=== PATIENT | female | born 1955 | race Two or more races ===

== ENCOUNTER → 2017-05-12 | Outpatient (CLI) | payer OTHER ==
[~2017-05-12] MED LIST: ALLO100T64 PO; AMLO10TA4 PO; AMLO5TAB2 PO; ASPI-496 PO; ATOR40TA PO; AZEL137S4 NAS; CALC1TAB4 PO; CHOL100018 PO; CLON0.1T PO; CLOP75TA22 PO; ENAL10TA PO; ESTR0.5G PO; FLUT16SP2 NAS; ISOS30TA8 PO; LANS30CA16 PO; METO-99 PO; METO50TA82 PO; MOME17SP NAS; MYCO360T PO; NITR0.4T8 SL; ONDA4TAB7 PO; OXYC-302 PO; PRED2.5T PO; PRED5TAB25 PO; TACR1CAP4 PO; TACR5CAP17 PO
== END | disposition home or self-care (01) ==
LOC: CFH 15:38
PROVIDERS: ATTEND Internal Medicine
DX: J98.11 Atelectasis (principal); J98.6 Disorders of diaphragm
CPT/HCPCS: 71250

== ENCOUNTER → 2017-11-10 | Outpatient (CLI) | payer OTHER ==
[~2017-11-10] MED LIST changes: +CHOL100012 PO; -CHOL100018 PO; -CLOP75TA22 PO; +CLOP75TA52 PO; -LANS30CA16 PO; +LANS30CA60 PO; +NITR0.4T28 SL; -NITR0.4T8 SL
== END | disposition home or self-care (01) ==
LOC: CFH 12:47
PROVIDERS: ATTEND Internal Medicine
DX: M48.54XA Collapsed vertebra, not elsewhere classified, thoracic region, initial encounter for fracture (principal); M51.34 Other intervertebral disc degeneration, thoracic region
CPT/HCPCS: 72146

== ENCOUNTER 2017-11-22 08:50 | Emergency (ER) | payer OTHER ==
[~2017-11-22] VITALS: Ht 157.5 cm; Wt 55.6 kg
[2017-11-22 08:51] VITALS: BP 187/88
[2017-11-22 10:34] LABS: RAPID INFLUENZA A Negative (Negative); RAPID INFLUENZA B Negative (Negative)
== END 2017-11-22 11:01 | disposition home or self-care (01) ==
LOC: ED 09:39
DX: J20.9 Acute bronchitis, unspecified (principal); J02.9 Acute pharyngitis, unspecified; I25.10 Atherosclerotic heart disease of native coronary artery without angina pectoris; I25.2 Old myocardial infarction; E11.9 Type 2 diabetes mellitus without complications; E78.5 Hyperlipidemia, unspecified; I10 Essential (primary) hypertension
CPT/HCPCS: 71046; 87081; 87400; 87880; 93005; 99285

== ENCOUNTER → 2018-07-04 | Outpatient (CLI) | payer OTHER | END | disposition home or self-care (01) | LOC: CVU 13:35 | PROVIDERS: ATTEND Internal Medicine Cardiovascular Disease | DX: I65.23 Occlusion and stenosis of bilateral carotid arteries (principal); I08.3 Combined rheumatic disorders of mitral, aortic and tricuspid valves; I25.10 Atherosclerotic heart disease of native coronary artery without angina pectoris; I10 Essential (primary) hypertension; E78.5 Hyperlipidemia, unspecified; J45.909 Unspecified asthma, uncomplicated; Z95.5 Presence of coronary angioplasty implant and graft | CPT/HCPCS: 93306; 93880 ==

== ENCOUNTER 2018-08-07 15:48 | Inpatient (IN) | payer OTHER ==
[~2018-08-07] VITALS: Ht 157.5 cm; Wt 56.8 kg
[~2018-08-07 15:48] MED LIST changes: -AMLO5TAB2 PO; +AMLO5TAB7 PO
[2018-08-07] MEDS ORDERED: ONDANSETRON ODT 4 MG PO ONE (16:30)
[2018-08-07] MEDS ORDERED: SODIUM CHLORIDE FLUSH 10ML SYR IVF ONE (16:30)
[2018-08-07] MEDS ORDERED: MORPHINE SULFATE 4 MG/ML, 1ML IVPush PRN (16:30)
[2018-08-07] MEDS ORDERED: MORPHINE SULFATE 4 MG/ML, 1ML ONE (16:43)
[2018-08-07] MEDS ORDERED: ONDANSETRON ODT 4 MG ONE (16:43)
[2018-08-07 16:45] LABS: BASOPHILS # (AUTO) 0.04 x10^3/uL (0-0.1); BASOPHILS % (AUTO) 1 % (0-1); EOSINOPHILS # (AUTO) 0.04 x10^3/uL (0-0.4); EOSINOPHILS % (AUTO) 1 % (1-7); LYMPHOCYTES # (AUTO) 0.75 x10^3/uL (1-3.4); LYMPHOCYTES % (AUTO) 9 % (22-44); MD NO; MEAN CORPUSCULAR HEMOGLOBIN 28.3 pg (27.0-34.8); MEAN CORPUSCULAR HGB CONC 32.8 g/dL (32.4-35.8); MEAN CORPUSCULAR VOLUME 86.3 fL (80-100); MEAN PLATELET VOLUME 9.2 fL (7.4-10.4); MONOCYTES # (AUTO) 0.48 x10^3/uL (0.2-0.8); MONOCYTES % (AUTO) 6 % (2-9); NEUTROPHILS # (AUTO) 6.87 x10^3/uL (1.8-6.8); NEUTROPHILS % (AUTO) 84 % (42-75); PLATELET COUNT 192 x10^3/uL (130-400); RED BLOOD COUNT 3.48 x10^6/uL (3.82-5.3); RED CELL DISTRIBUTION WIDTH 14.6 % (9.6-15.2)
[2018-08-07 16:57] LABS: ALANINE AMINOTRANSFERASE 16 U/L (12-78); ALBUMIN 3.4 g/dL (3.4-5.0); ANION GAP 12 mmol/L (5-15); CALCIUM 8.3 mg/dL (8.5-10.1); CHLORIDE 110 mmol/L (98-107); CREATININE 2.46 mg/dL (0.55-1.02)
[2018-08-07 17:02] LABS: ALKALINE PHOSPHATASE 69 U/L (45-117); BILIRUBIN,TOTAL 0.3 mg/dL (0.2-1.0); TOTAL PROTEIN 6.5 g/dL (6.4-8.2); TROPONIN I < 0.015 ng/mL (0.000-0.045)
[2018-08-07] MEDS ORDERED: TACR0.5C4 PO (18:13)
[2018-08-07] MEDS ORDERED: AMLO5TAB7 PO (18:13)
[2018-08-07] MEDS ORDERED: STOOL SOFTENER PO (18:13)
[2018-08-07] MEDS ORDERED: CRANBERRY PO (18:13)
[2018-08-07] MEDS ORDERED: ASCO500C2 PO (18:13)
[2018-08-07] MEDS ORDERED: SODIUM CHLORIDE FLUSH 10ML SYR IVF PRN (19:00)
[2018-08-07 19:40] VITALS: BP 174/69
[2018-08-07] MEDS ORDERED: ENALAPRIL 10 MG TABLET PO SCH (21:00)
[2018-08-07] MEDS ORDERED: ONDANSETRON 2MG/ML, 2ML IVPush PRN (21:00)
[2018-08-07] MEDS ORDERED: DOCUSATE 100 MG CAPSULE PO PRN (21:00)
[2018-08-07] MEDS ORDERED: ACETAMINOPHEN 325 MG TABLET PO PRN (21:00)
[2018-08-07] MEDS ORDERED: morphine SULFATE 10 MG/ML, 1ML IVPush PRN (21:00)
[2018-08-07] MEDS ORDERED: ATORVASTATIN 40 MG TABLET PO SCH (21:00)
[2018-08-07] MEDS ORDERED: NITROGLYCERIN 0.4 MG BOTTLE (25 TABS) SL PRN (21:00)
[2018-08-07] MEDS ORDERED: hydrALAzine 20 MG/ML, 1ML IVPush PRN (21:00)
[2018-08-07] MEDS: TACROLIMUS 0.5 MG CAPSULE PO SCH (21:56)
[2018-08-07] MEDS: CALCIUM/VITAMIN D3 250-125 TABLET PO SCH (21:57)
[2018-08-07] MEDS: PANTOPROZOLE 40MG TABLET PO SCH (21:57)
[2018-08-07] MEDS: METOPROLOL TARTRATE 100 MG TABLET PO SCH (21:58)
[2018-08-07] MEDS: AMLODIPINE 10 MG TAB PO SCH (21:58)
[2018-08-07 22:02] VITALS: BP 153/72
[2018-08-07] MEDS ORDERED: AMOX1TAB64 PO (22:07)
[2018-08-07] MEDS: SODIUM CHLORIDE 0.9% 1,000 ML IV SCH (22:23)
[2018-08-07 22:31] LABS: TROPONIN I < 0.015 ng/mL (0.000-0.045)
[2018-08-07] MEDS ORDERED: DOCU-131 PO (22:40)
[2018-08-07] MEDS ORDERED: FLUT1BLS3 PO (23:52)
[2018-08-08 03:58] VITALS: BP 150/65
[2018-08-08 05:40] LABS: BASOPHILS # (AUTO) 0.02 x10^3/uL (0-0.1); BASOPHILS % (AUTO) 0 % (0-1); EOSINOPHILS # (AUTO) 0.24 x10^3/uL (0-0.4); EOSINOPHILS % (AUTO) 3 % (1-7); LYMPHOCYTES % (AUTO) 14 % (22-44); MD NO; MEAN CORPUSCULAR HEMOGLOBIN 29.2 pg (27.0-34.8); MEAN CORPUSCULAR HGB CONC 33.3 g/dL (32.4-35.8); MEAN CORPUSCULAR VOLUME 87.9 fL (80-100); MEAN PLATELET VOLUME 9.7 fL (7.4-10.4); MONOCYTES # (AUTO) 0.81 x10^3/uL (0.2-0.8); MONOCYTES % (AUTO) 10 % (2-9); NEUTROPHILS # (AUTO) 5.71 x10^3/uL (1.8-6.8); NEUTROPHILS % (AUTO) 72 % (42-75); PLATELET COUNT 164 x10^3/uL (130-400); RED BLOOD COUNT 3.21 x10^6/uL (3.82-5.3); RED CELL DISTRIBUTION WIDTH 14.8 % (9.6-15.2)
[2018-08-08] MEDS: SODIUM CHLORIDE 0.9% 1,000 ML IV SCH ×2 (05:46→12:50)
[2018-08-08 05:49] LABS: ANION GAP 8 mmol/L (5-15); CALCIUM 7.9 mg/dL (8.5-10.1); CHLORIDE 114 mmol/L (98-107); CREATININE 1.97 mg/dL (0.55-1.02)
[2018-08-08 05:53] LABS: TROPONIN I < 0.015 ng/mL (0.000-0.045)
[2018-08-08 07:04] VITALS: BP 168/69
[2018-08-08] MEDS ORDERED: ESTRADIOL 0.5 MG TABLET PO SCH (09:00)
[2018-08-08] MEDS ORDERED: FLUTICASONE NASAL SPRAY 16GM NAS SCH (09:00)
[2018-08-08] MEDS ORDERED: CLOPIDOGREL 75 MG TABLET PO SCH (09:00)
[2018-08-08] MEDS ORDERED: ASPIRIN 81 MG TABLET EC PO SCH (09:00)
[2018-08-08] MEDS ORDERED: AUGMENTIN HOMEMEDPO SCH (09:00)
[2018-08-08] MEDS ORDERED: TRELEGY HOMEMEDPO SCH (09:00)
[2018-08-08] MEDS ORDERED: ASCORBIC ACID 500 MG TABLET PO SCH (09:00)
[2018-08-08] MEDS ORDERED: CHOLECALCIFEROL 1,000 UNIT TABLET PO SCH (09:00)
[2018-08-08] MEDS: CALCIUM/VITAMIN D3 250-125 TABLET PO SCH (10:15)
[2018-08-08] MEDS: PANTOPROZOLE 40MG TABLET PO SCH (10:16)
[2018-08-08] MEDS: AMLODIPINE 10 MG TAB PO SCH (10:17)
[2018-08-08] MEDS: METOPROLOL TARTRATE 100 MG TABLET PO SCH (10:29)
[2018-08-08] MEDS ORDERED: REGADENOSON 0.4 MG/5 ML SYRINGE ONE (11:00)
[2018-08-08 12:18] VITALS: BP 139/63
[2018-08-08] MEDS: TACROLIMUS 0.5 MG CAPSULE PO SCH (12:34)
== END 2018-08-08 14:28 | disposition home or self-care (01) | DRG 302 ==
LOC: ED 17:55 → EDIP 18:52 → 5SO 19:34 → DCLOUNGE 08-08 14:16
PROVIDERS: ADMIT Hospitalist; ATTEND Hospitalist
DX: I25.110 Atherosclerotic heart disease of native coronary artery with unstable angina pectoris (principal); N17.0 Acute kidney failure with tubular necrosis; Z94.83 Pancreas transplant status; Z94.0 Kidney transplant status; I13.10 Hypertensive heart and chronic kidney disease without heart failure, with stage 1 through stage 4 chronic kidney disease, or unspecified chronic kidney disease; E11.22 Type 2 diabetes mellitus with diabetic chronic kidney disease; D69.2 Other nonthrombocytopenic purpura; J01.90 Acute sinusitis, unspecified; D63.8 Anemia in other chronic diseases classified elsewhere; E78.5 Hyperlipidemia, unspecified; I25.2 Old myocardial infarction; J45.909 Unspecified asthma, uncomplicated; I08.0 Rheumatic disorders of both mitral and aortic valves; N18.9 Chronic kidney disease, unspecified; Z79.82 Long term (current) use of aspirin; Z80.52 Family history of malignant neoplasm of bladder; Z80.42 Family history of malignant neoplasm of prostate; Z83.3 Family history of diabetes mellitus; Z95.5 Presence of coronary angioplasty implant and graft
CPT/HCPCS: 36415; 71045; 78452; 80048; 80053; 80197; 83735; 83880; 84484; 85025; 93005; 93017; 96374; G0378; J2785; J7507; J7512; J7518; Q0162; A9502; C9898; J7030

== ENCOUNTER 2019-04-17 00:47 | Inpatient (IN) | payer MEDICARE ==
[~2019-04-17] VITALS: Ht 157.5 cm; Wt 48.2 kg
[~2019-04-17 00:47] MED LIST changes: +AMLO-150 PO; -AMLO5TAB7 PO; +AMOX1TAB64 PO; +ASCO500C2 PO; +BENA20TA54 PO; +CARV25TA12 PO; -CLON0.1T PO; +CLON0.1T22 PO; +CRANBERRY PO; +DOCU-131 PO; +FLUT1BLS3 PO; +HYDR-3343 PO; +STOOL SOFTENER PO; +TACR0.5C4 PO
--- NOTE | 2019-04-17 00:54 | NUR ---
STERNAL, LEFT ARM, JAW PAIN X 2 DAYS. TOOK 3 NITRO WITHOUT RELIEF. FL IN 1989 WITH TOTAL OF 6 STENTS. 13 ANGIOPLASTIES. 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 ON IMMUNOSUPPRESSANTS. TAKEN OFF PLAVIX 3 MONTHS AGO. 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
--- NOTE | 2019-04-17 00:56 | NUR ---
EKG DONE IN TRIAGE
[2019-04-17] MEDS ORDERED: ENAL2.5T PO (01:09)
--- NOTE | 2019-04-17 01:14 | NUR ---
Locket LISA BLOOF FOR LABS AT THE SAME TIME START IV
--- NOTE | 2019-04-17 01:15 | NUR ---
PT STATED TOOK BABY ASA AT HOME
[2019-04-17] MEDS ORDERED: NITROGLYCERIN OINT 2%, 1GM TP ONE ×2 (01:22→01:30)
[2019-04-17] MEDS ORDERED: ASPIRIN 81 MG TABLET CHEW ONE (01:22)
--- NOTE | 2019-04-17 01:25 | NUR ---
GIVEN ASA 162MG WITH NTG PASTE
[2019-04-17 01:28] LABS: BASOPHILS # (AUTO) 0.02 x10^3/uL (0-0.1); BASOPHILS % (AUTO) 0 % (0-1); EOSINOPHILS # (AUTO) 0.05 x10^3/uL (0-0.4); EOSINOPHILS % (AUTO) 1 % (1-7); LYMPHOCYTES # (AUTO) 0.98 x10^3/uL (1-3.4); LYMPHOCYTES % (AUTO) 17 % (22-44); MD NO; MEAN CORPUSCULAR HEMOGLOBIN 28.3 pg (27.0-34.8); MEAN CORPUSCULAR HGB CONC 32.2 g/dL (32.4-35.8); MEAN CORPUSCULAR VOLUME 87.9 fL (80-100); MONOCYTES # (AUTO) 0.43 x10^3/uL (0.2-0.8); MONOCYTES % (AUTO) 8 % (2-9); NEUTROPHILS # (AUTO) 4.18 x10^3/uL (1.8-6.8); NEUTROPHILS % (AUTO) 74 % (42-75); PLATELET COUNT 166 x10^3/uL (130-400); RED BLOOD COUNT 3.16 x10^6/uL (3.82-5.3); RED CELL DISTRIBUTION WIDTH 16.8 % (9.6-15.2)
[2019-04-17] MEDS ORDERED: SODIUM CHLORIDE FLUSH 10ML SYR IVF ONE (01:30)
[2019-04-17] MEDS ORDERED: ASPIRIN 81 MG TABLET CHEW PO ONE (01:30)
[2019-04-17 01:40] LABS: ALANINE AMINOTRANSFERASE 17 U/L (12-78); ALBUMIN 3.2 g/dL (3.4-5.0); ANION GAP 10 mmol/L (5-15); CALCIUM 7.9 mg/dL (8.5-10.1); CHLORIDE 113 mmol/L (98-107)
[2019-04-17 01:45] LABS: ALKALINE PHOSPHATASE 54 U/L (45-117); BILIRUBIN,TOTAL 0.2 mg/dL (0.2-1.0); TOTAL PROTEIN 5.8 g/dL (6.4-8.2); TROPONIN I < 0.015 ng/mL (0.000-0.045)
--- NOTE | 2019-04-17 02:41 | NUR ---
pt is in us now vss updated given urine cup for ua pt is aware
--- NOTE | 2019-04-17 02:58 | NUR ---
pt just came back from us urine was collected ua in the lab now
[2019-04-17] MEDS ORDERED: SODIUM CHLORIDE 0.9% 1,000 ML IV ONE (03:00)
--- NOTE | 2019-04-17 03:07 | NUR ---
ua sent to lab iv fluids infusing
--- NOTE | 2019-04-17 03:11 | NUR ---
wanted to give report but the rn at tele ( amber ) is in iso rm the rn will call me back per @ [phone]
[2019-04-17 03:13] LABS: MICROSCOPIC AUTO
[2019-04-17 03:15] LABS: CULTURE INDICATED? NO
--- NOTE | 2019-04-17 03:21 | NUR ---
karen staley at bedside for admit
[2019-04-17] MEDS ORDERED: SODIUM CHLORIDE 0.9% 1,000 ML IV SCH (03:30)
[2019-04-17] MEDS ORDERED: DOCUSATE 100 MG CAPSULE PO PRN (03:30)
[2019-04-17] MEDS ORDERED: ACETAMINOPHEN 325 MG TABLET PO PRN (03:30)
[2019-04-17 03:48] VITALS: BP 165/68
[2019-04-17 04:20] VITALS: BP 165/68
[2019-04-17] MEDS ORDERED: ALBUTEROL/IPRATROPIUM 2.5MG/0.5MG, 3 ML NPPB SCH (06:00)
[2019-04-17 07:21] VITALS: BP 154/69
[2019-04-17 07:32] LABS: TROPONIN I 0.032 ng/mL (0.000-0.045)
[2019-04-17] MEDS: ENALAPRIL 2.5MG TABLET PO SCH ×2 (08:00→17:00)
[2019-04-17] MEDS: BUDESONIDE 0.5 MG/2 ML INHA NPPB SCH ×2 (08:03→21:00)
[2019-04-17] MEDS: ASPIRIN 81 MG TABLET EC PO SCH (09:22)
[2019-04-17] MEDS: ASCORBIC ACID 500 MG TABLET PO SCH (09:22)
[2019-04-17] MEDS: AMLODIPINE 5 MG TABLET PO SCH ×2 (09:22→20:57)
[2019-04-17] MEDS: PANTOPROZOLE 40MG TABLET PO SCH ×2 (09:23→20:57)
[2019-04-17] MEDS: CARVEDILOL 25 MG TABLET PO SCH ×2 (09:23→20:57)
[2019-04-17] MEDS: TACROLIMUS 0.5 MG CAPSULE PO SCH ×2 (09:24→20:57)
[2019-04-17] MEDS ORDERED: ENALAPRIL 5MG TABLET ONE ×2 (09:26→17:05)
[2019-04-17] MEDS: ESTRADIOL 0.5 MG TABLET PO SCH (09:31)
[2019-04-17 12:52] VITALS: BP 129/50
[2019-04-17 13:20] LABS: ANION GAP 8 mmol/L (5-15); CALCIUM 7.6 mg/dL (8.5-10.1); CHLORIDE 112 mmol/L (98-107); CREATININE 2.41 mg/dL (0.55-1.02); IRON LEVEL 81 mcg/dL (50-170)
[2019-04-17 13:24] LABS: % IRON SATURATION 28 % (20-55); TOTAL IRON BINDING CAPACITY 286 mcg/dL (250-450); TROPONIN I 0.049 ng/mL (0.000-0.045)
[2019-04-17 19:27] LABS: ANION GAP 8 mmol/L (5-15); CALCIUM 7.6 mg/dL (8.5-10.1); CHLORIDE 110 mmol/L (98-107); CREATININE 2.44 mg/dL (0.55-1.02)
[2019-04-17 19:31] LABS: TROPONIN I 0.045 ng/mL (0.000-0.045)
[2019-04-17 19:32] VITALS: BP 139/54
[2019-04-17 20:52] VITALS: BP 135/65
[2019-04-17] MEDS ORDERED: ATORVASTATIN 40 MG TABLET PO SCH (21:00)
[2019-04-18 01:38] VITALS: BP 143/57
[2019-04-18 05:23] VITALS: BP 136/65
[2019-04-18 05:59] LABS: CHLORIDE 113 mmol/L (98-107)
[2019-04-18 06:08] LABS: ANION GAP 7 mmol/L (5-15); CALCIUM 7.6 mg/dL (8.5-10.1); CREATININE 2.47 mg/dL (0.55-1.02)
[2019-04-18 07:00] VITALS: BP 146/56
[2019-04-18] MEDS: BUDESONIDE 0.5 MG/2 ML INHA NPPB SCH (07:15)
[2019-04-18] MEDS: PANTOPROZOLE 40MG TABLET PO SCH (08:21)
[2019-04-18] MEDS: ENALAPRIL 2.5MG TABLET PO SCH (08:21)
[2019-04-18] MEDS: CARVEDILOL 25 MG TABLET PO SCH (08:21)
[2019-04-18] MEDS: AMLODIPINE 5 MG TABLET PO SCH (08:21)
[2019-04-18] MEDS: ASCORBIC ACID 500 MG TABLET PO SCH (08:21)
[2019-04-18] MEDS: ESTRADIOL 0.5 MG TABLET PO SCH (08:22)
[2019-04-18] MEDS: ASPIRIN 81 MG TABLET EC PO SCH (08:22)
[2019-04-18] MEDS: TACROLIMUS 0.5 MG CAPSULE PO SCH (08:27)
[2019-04-18] MEDS ORDERED: ALBUTEROL/IPRATROPIUM 2.5MG/0.5MG, 3 ML NPPB SCH (09:00)
== END 2019-04-18 10:30 | disposition home or self-care (01) | DRG 683 ==
LOC: ED 01:28 → EDIP 02:38 → 5SO 03:35 → DCLOUNGE 04-18 10:14
PROVIDERS: ADMIT Family Medicine; ATTEND Family Medicine
DX: N17.9 Acute kidney failure, unspecified (principal); I12.0 Hypertensive chronic kidney disease with stage 5 chronic kidney disease or end stage renal disease; F19.20 Other psychoactive substance dependence, uncomplicated; Z94.83 Pancreas transplant status; R07.89 Other chest pain; N18.6 End stage renal disease; M10.9 Gout, unspecified; D64.9 Anemia, unspecified; G89.29 Other chronic pain; J45.909 Unspecified asthma, uncomplicated; M54.9 Dorsalgia, unspecified; E10.21 Type 1 diabetes mellitus with diabetic nephropathy; E10.22 Type 1 diabetes mellitus with diabetic chronic kidney disease; E78.5 Hyperlipidemia, unspecified; F12.90 Cannabis use, unspecified, uncomplicated; I25.10 Atherosclerotic heart disease of native coronary artery without angina pectoris; I25.2 Old myocardial infarction; Z79.4 Long term (current) use of insulin; Z82.49 Family history of ischemic heart disease and other diseases of the circulatory system; Z82.5 Family history of asthma and other chronic lower respiratory diseases; Z87.440 Personal history of urinary (tract) infections; Z95.5 Presence of coronary angioplasty implant and graft; Z88.5 Allergy status to narcotic agent; Z88.1 Allergy status to other antibiotic agents; Z88.8 Allergy status to other drugs, medicaments and biological substances
CPT/HCPCS: 36415; 71045; 76770; 80048; 80053; 81001; 82728; 83540; 83550; 83690; 84484; 85025; 93005; 94640; G0378; J7507; J7518; J7620; J7626; J7030; J7512

== ENCOUNTER 2019-06-09 15:27 | Outpatient (CLI) | payer MEDICARE ==
[~2019-06-09 15:27] MED LIST changes: +ENAL2.5T PO
== END 2019-06-09 23:59 | disposition home or self-care (01) ==
LOC: CFH 15:27
PROVIDERS: ATTEND Nurse Practitioner Family
DX: I08.3 Combined rheumatic disorders of mitral, aortic and tricuspid valves (principal); I11.9 Hypertensive heart disease without heart failure
CPT/HCPCS: 93306

== ENCOUNTER 2019-06-22 08:47 | Outpatient (CLI) | payer MEDICARE ==
[2019-06-22] MEDS ORDERED: REGADENOSON 0.4 MG/5 ML SYRINGE ONE (13:02)
[2019-06-29] MEDS ORDERED: METO50TA82 PO (13:31)
[2019-06-29] MEDS ORDERED: TACR1CAP4 PO (13:35)
[2019-06-29] MEDS ORDERED: ENAL20TA PO (13:41)
[2019-06-30] MEDS ORDERED: AMLO10TA8 PO (10:00)
[2019-06-30] MEDS ORDERED: CLOP75TA PO (10:36)
[2019-07-11] MEDS ORDERED: CEFD300C37 PO (12:09)
[2019-07-11] MEDS ORDERED: AZIT250T89 PO (12:09)
== END 2019-06-22 23:59 | disposition home or self-care (01) ==
LOC: CFH 08:47
PROVIDERS: ATTEND Nurse Practitioner Family
DX: I25.9 Chronic ischemic heart disease, unspecified (principal); I10 Essential (primary) hypertension
CPT/HCPCS: 78452; 93017; A9502; J2785

== ENCOUNTER 2019-06-29 11:48 | Observation (INO) | payer MEDICARE ==
[~2019-06-29] VITALS: Ht 157.5 cm; Wt 57.5 kg
[2019-06-30 07:45] VITALS: BP 147/50
== END 2019-06-30 13:40 | disposition home or self-care (01) ==
LOC: CACL 11:48 → 5SO 17:44 → CACL 23:58 → 5SO 23:58 → DCLOUNGE 06-30 12:30 → 4WST 06-30 13:36
PROVIDERS: ADMIT Internal Medicine Cardiovascular Disease; ATTEND Internal Medicine Cardiovascular Disease
DX: I25.110 Atherosclerotic heart disease of native coronary artery with unstable angina pectoris (principal); Z95.5 Presence of coronary angioplasty implant and graft
CPT/HCPCS: 36415; 80048; 84484; 85025; 93005; 93454; 93571; 96365; 96366; 99156; 99157; C1725; C1760; C1769; C1874; C1887; C1894; C9600; G0378; J0583; J1644; J2250; J3010; J3490; J7070; J7507; J7512; J7518; Q9967

== ENCOUNTER 2019-07-08 07:42 | Inpatient (IN) | payer MEDICARE ==
[~2019-07-08] VITALS: Ht 157.5 cm; Wt 53.2 kg
[2019-07-11 07:13] VITALS: BP 171/60
== END 2019-07-11 13:36 | disposition home or self-care (01) | DRG 698 ==
LOC: ED 09:12 → EDIP 09:13 → ED 09:52 → 4EST 11:46 → DCLOUNGE 07-11 13:18
PROVIDERS: ADMIT Family Medicine; ATTEND Family Medicine
DX: T86.19 Other complication of kidney transplant (principal); J15.9 Unspecified bacterial pneumonia; J96.91 Respiratory failure, unspecified with hypoxia; E43 Unspecified severe protein-calorie malnutrition; N17.9 Acute kidney failure, unspecified; F19.20 Other psychoactive substance dependence, uncomplicated; Z94.83 Pancreas transplant status; I12.0 Hypertensive chronic kidney disease with stage 5 chronic kidney disease or end stage renal disease; D50.9 Iron deficiency anemia, unspecified; D63.8 Anemia in other chronic diseases classified elsewhere; Z88.6 Allergy status to analgesic agent; Z88.8 Allergy status to other drugs, medicaments and biological substances; E78.5 Hyperlipidemia, unspecified; G89.29 Other chronic pain; I25.10 Atherosclerotic heart disease of native coronary artery without angina pectoris; I25.2 Old myocardial infarction; I35.0 Nonrheumatic aortic (valve) stenosis; J06.9 Acute upper respiratory infection, unspecified; Z82.5 Family history of asthma and other chronic lower respiratory diseases; Z82.49 Family history of ischemic heart disease and other diseases of the circulatory system; Y83.0 Surgical operation with transplant of whole organ as the cause of abnormal reaction of the patient, or of later complication, without mention of misadventure at the time of the procedure; Z79.899 Other long term (current) drug therapy; Z95.5 Presence of coronary angioplasty implant and graft; Y92.89 Other specified places as the place of occurrence of the external cause; E10.8 Type 1 diabetes mellitus with unspecified complications; Z68.21 Body mass index [BMI] 21.0-21.9, adult
CPT/HCPCS: 36415; 71045; 71046; 76700; 80053; 81001; 82570; 82728; 83540; 83550; 83605; 83690; 83880; 84300; 84484; 85025; 85610; 87040; 87070; 87081; 87205; 87324; 93005; 93308; 94640; 96365; G0378; J0696; J3480; J7507; J7518; Q0162; J7120; J7512

== ENCOUNTER 2020-02-20 06:09 | Day surgery (SDC) | payer MEDICARE ==
[~2020-02-20] VITALS: Ht 157.5 cm; Wt 49.9 kg
[~2020-02-20 06:09] MED LIST changes: +AMLO10TA8 PO; +AZIT250T89 PO; +CEFD300C37 PO; +CLOP75TA PO; +ENAL20TA PO; -TACR1CAP4 PO; +TACR1CAP5 PO
[2020-02-20 07:01] VITALS: BP 133/68
[2020-02-20] MEDS ORDERED: SODIUM CHLORIDE 0.9% 1,000 ML IV SCH (07:03)
[2020-02-20] MEDS ORDERED: MIDAZOLAM 1 MG/ML, 5ML ONE (07:46)
[2020-02-20] MEDS ORDERED: NALOXONE 1 MG/ML, 2ML ONE (07:46)
[2020-02-20] MEDS ORDERED: FENTANYL PF 100 MCG/2ML ONE ×2 (07:46)
[2020-02-20] MEDS ORDERED: FLUMAZENIL 0.1 MG/1 ML, 5ML ONE (07:46)
[2020-02-20] MEDS ORDERED: ACETAMINOPHEN 325 MG TABLET ONE (10:25)
[2020-02-20] MEDS ORDERED: ACETAMINOPHEN 325 MG TABLET PO ONE ×2 (10:30→11:00)
[2020-02-20] MEDS ORDERED: ACETAMINOPHEN 500 MG TABLET PO ONE (10:30)
== END 2020-02-20 12:35 | disposition home or self-care (01) ==
LOC: OUT 06:09
PROVIDERS: ATTEND Internal Medicine Nephrology
DX: T86.19 Other complication of kidney transplant (principal); N05.9 Unspecified nephritic syndrome with unspecified morphologic changes; N18.3 Chronic kidney disease, stage 3 (moderate); N17.9 Acute kidney failure, unspecified; I25.2 Old myocardial infarction; J45.909 Unspecified asthma, uncomplicated; Z88.5 Allergy status to narcotic agent; Z88.8 Allergy status to other drugs, medicaments and biological substances; Z95.5 Presence of coronary angioplasty implant and graft; Y83.8 Other surgical procedures as the cause of abnormal reaction of the patient, or of later complication, without mention of misadventure at the time of the procedure
CPT/HCPCS: 50200; 77012; 88300; 88305; 88313; 88342; 88346; 88348; 88350; 99156; 99157; J2250; J3010; J7030; J2310

== ENCOUNTER 2020-03-13 14:18 | Inpatient (IN) | payer MEDICARE ==
[~2020-03-13] VITALS: Ht 157.5 cm; Wt 51.6 kg
[~2020-03-13 14:18] MED LIST changes: +TACR1CAP4 PO; -TACR1CAP5 PO
[2020-03-13 14:58] VITALS: BP 170/7
[2020-03-13 15:00] VITALS: BP 170/70
[2020-03-13 15:44] LABS: BASOPHILS # (AUTO) 0.01 x10^3/uL (0-0.1); BASOPHILS % (AUTO) 0 % (0-1); EOSINOPHILS # (AUTO) 0.14 x10^3/uL (0-0.4); EOSINOPHILS % (AUTO) 2 % (1-7); LYMPHOCYTES # (AUTO) 1.02 x10^3/uL (1-3.4); LYMPHOCYTES % (AUTO) 17 % (22-44); MD NO; MEAN CORPUSCULAR HEMOGLOBIN 28.3 pg (27.0-34.8); MEAN CORPUSCULAR HGB CONC 32.1 g/dL (32.4-35.8); MEAN CORPUSCULAR VOLUME 87.9 fL (80-100); MEAN PLATELET VOLUME 9.5 fL (7.4-10.4); MONOCYTES # (AUTO) 0.61 x10^3/uL (0.2-0.8); MONOCYTES % (AUTO) 10 % (2-9); NEUTROPHILS # (AUTO) 4.32 x10^3/uL (1.8-6.8); NEUTROPHILS % (AUTO) 71 % (42-75); PLATELET COUNT 162 x10^3/uL (130-400); RED BLOOD COUNT 3.49 x10^6/uL (3.82-5.3); RED CELL DISTRIBUTION WIDTH 16.5 % (9.6-15.2)
[2020-03-13 15:52] LABS: ALANINE AMINOTRANSFERASE 19 U/L (12-78); ANION GAP 3 mmol/L (5-15); CALCIUM 8.3 mg/dL (8.5-10.1); CHLORIDE 112 mmol/L (98-107); CREATININE 2.53 mg/dL (0.55-1.02)
[2020-03-13 15:55] LABS: ALKALINE PHOSPHATASE 61 U/L (45-117); BILIRUBIN,TOTAL 0.4 mg/dL (0.2-1.0)
[2020-03-13] MEDS ORDERED: PIPERACILLIN/TAZO/PMX 2.25GM 50 ML IV SCH (16:00)
[2020-03-13] MEDS ORDERED: VANCOMYCIN PER PHARMACY MC PRN (16:00)
[2020-03-13] MEDS ORDERED: PHARMACOKINETIC MONITORING MC PRN (16:00)
[2020-03-13] MEDS ORDERED: VANCOMYCIN PMX 1GM/200ML 200 ML IV ONE (16:30)
[2020-03-13] MEDS ORDERED: hydrALAzine 20 MG/ML, 1ML IVPush PRN (16:30)
[2020-03-13] MEDS ORDERED: ONDANSETRON ODT 4 MG PO PRN (16:30)
[2020-03-13] MEDS ORDERED: FLUTICASONE NASAL SPRAY 16GM NAS PRN (16:30)
[2020-03-13] MEDS ORDERED: ACETAMINOPHEN 325 MG TABLET PO PRN (16:30)
[2020-03-13] MEDS: HEPARIN 5,000 UNITS/ML, 1ML SQ SCH (17:19)
[2020-03-13 18:51] VITALS: BP 164/60
[2020-03-13] MEDS: CALCIUM/VITAMIN D3 250-125 TABLET PO SCH (20:34)
[2020-03-13] MEDS: PANTOPRAZOLE 40MG TABLET PO SCH (20:34)
[2020-03-13] MEDS: TACROLIMUS 1 MG CAPSULE PO SCH (20:34)
[2020-03-13] MEDS: mycophenOLATE SODIUM 360MG DR PO SCH (20:34)
[2020-03-13] MEDS ORDERED: ATORVASTATIN 40 MG TABLET PO SCH (21:00)
[2020-03-13] MEDS ORDERED: TACROLIMUS 0.5 MG CAPSULE PO SCH (21:00)
[2020-03-13] MEDS ORDERED: OXYMETAZOLINE NASAL SPRAY 0.05%,30ML NAS SCH (21:00)
[2020-03-14 01:27] VITALS: BP 168/76
[2020-03-14] MEDS: HEPARIN 5,000 UNITS/ML, 1ML SQ SCH (05:40)
[2020-03-14 06:36] LABS: BASOPHILS # (AUTO) 0.03 x10^3/uL (0-0.1); BASOPHILS % (AUTO) 0 % (0-1); EOSINOPHILS # (AUTO) 0.18 x10^3/uL (0-0.4); EOSINOPHILS % (AUTO) 3 % (1-7); LYMPHOCYTES # (AUTO) 1.23 x10^3/uL (1-3.4); LYMPHOCYTES % (AUTO) 21 % (22-44); MD NO; MEAN CORPUSCULAR HGB CONC 32.1 g/dL (32.4-35.8); MEAN CORPUSCULAR VOLUME 87.2 fL (80-100); MEAN PLATELET VOLUME 9.9 fL (7.4-10.4); MONOCYTES # (AUTO) 0.43 x10^3/uL (0.2-0.8); MONOCYTES % (AUTO) 7 % (2-9); NEUTROPHILS # (AUTO) 4.09 x10^3/uL (1.8-6.8); NEUTROPHILS % (AUTO) 69 % (42-75); PLATELET COUNT 145 x10^3/uL (130-400); RED BLOOD COUNT 3.47 x10^6/uL (3.82-5.3); RED CELL DISTRIBUTION WIDTH 16.6 % (9.6-15.2)
[2020-03-14 06:45] LABS: ALBUMIN 2.7 g/dL (3.4-5.0); ANION GAP 6 mmol/L (5-15); CALCIUM 8.4 mg/dL (8.5-10.1); CHLORIDE 113 mmol/L (98-107)
[2020-03-14 06:49] LABS: ALANINE AMINOTRANSFERASE 16 U/L (12-78); ALKALINE PHOSPHATASE 57 U/L (45-117); BILIRUBIN,TOTAL 0.6 mg/dL (0.2-1.0); CREATININE 2.35 mg/dL (0.55-1.02); TOTAL PROTEIN 5.6 g/dL (6.4-8.2)
[2020-03-14 07:20] VITALS: BP 193/72
[2020-03-14] MEDS ORDERED: METOPROLOL TARTRATE 100 MG TAB PO SCH (09:00)
[2020-03-14] MEDS ORDERED: AMLODIPINE 10 MG TAB PO SCH (09:00)
[2020-03-14] MEDS ORDERED: ASPIRIN 81 MG TABLET EC PO SCH (09:00)
[2020-03-14] MEDS ORDERED: CLOPIDOGREL 75 MG TABLET PO SCH (09:00)
[2020-03-14] MEDS ORDERED: ASCORBIC ACID 500 MG TABLET PO SCH (09:00)
[2020-03-14] MEDS: TACROLIMUS 1 MG CAPSULE PO SCH (09:10)
[2020-03-14] MEDS: CALCIUM/VITAMIN D3 250-125 TABLET PO SCH (09:10)
[2020-03-14] MEDS: PANTOPRAZOLE 40MG TABLET PO SCH (09:10)
[2020-03-14] MEDS: mycophenOLATE SODIUM 360MG DR PO SCH (10:19)
[2020-03-14] MEDS ORDERED: DOXY100C2 PO (12:58)
[2020-03-14 13:07] LABS: ANION GAP 6 mmol/L (5-15); CALCIUM 8.5 mg/dL (8.5-10.1); CHLORIDE 113 mmol/L (98-107); CREATININE 2.29 mg/dL (0.55-1.02)
== END 2020-03-14 15:00 | disposition home or self-care (01) | DRG 602 ==
LOC: 4EST 14:18
PROVIDERS: ADMIT Otolaryngology; ATTEND Otolaryngology
DX: L03.213 Periorbital cellulitis (principal); N18.6 End stage renal disease; I12.0 Hypertensive chronic kidney disease with stage 5 chronic kidney disease or end stage renal disease; Z94.0 Kidney transplant status; Z94.83 Pancreas transplant status; H11.30 Conjunctival hemorrhage, unspecified eye; D89.9 Disorder involving the immune mechanism, unspecified; I25.10 Atherosclerotic heart disease of native coronary artery without angina pectoris; J45.909 Unspecified asthma, uncomplicated; E10.22 Type 1 diabetes mellitus with diabetic chronic kidney disease; Z88.6 Allergy status to analgesic agent; Z88.1 Allergy status to other antibiotic agents; Z88.5 Allergy status to narcotic agent; Z79.899 Other long term (current) drug therapy; Z83.6 Family history of other diseases of the respiratory system; Z82.49 Family history of ischemic heart disease and other diseases of the circulatory system; Z80.9 Family history of malignant neoplasm, unspecified; Z79.82 Long term (current) use of aspirin; Z95.5 Presence of coronary angioplasty implant and graft
CPT/HCPCS: 36415; 70486; 80048; 80053; 85025; G0378; J1644; J2543; J3370; J7507; J7518; J0360; J7512

== ENCOUNTER → 2020-09-11 | Outpatient (CLI) | payer SELFPAY ==
[~2020-09-11] MED LIST changes: +DOXY100C2 PO; -ENAL10TA PO; +ENAL10TA9 PO; -ENAL2.5T PO; +ENAL2.5T8 PO; -ENAL20TA PO; +ENAL20TA9 PO; -TACR1CAP4 PO; +TACR1CAP5 PO
== END | disposition home or self-care (01) ==
LOC: LAB 14:55
PROVIDERS: ATTEND Family Medicine
DX: Z00.5 Encounter for examination of potential donor of organ and tissue (principal)
CPT/HCPCS: 36415

== ENCOUNTER → 2020-10-08 | Outpatient (CLI) | payer MEDICARE ==
[~2020-10-08] MED LIST changes: +AMLO-211 PO; -AMLO10TA8 PO
== END | disposition home or self-care (01) ==
LOC: CFH 13:57
PROVIDERS: ATTEND Internal Medicine Cardiovascular Disease
DX: I08.3 Combined rheumatic disorders of mitral, aortic and tricuspid valves (principal); I11.9 Hypertensive heart disease without heart failure; R07.9 Chest pain, unspecified; R01.1 Cardiac murmur, unspecified
CPT/HCPCS: 93306

== ENCOUNTER 2020-12-08 13:50 | Emergency (ER) | payer MEDICARE ==
[~2020-12-08] VITALS: Ht 157.5 cm; Wt 44.8 kg
[~2020-12-08 13:50] MED LIST changes: +ALBU8.5H8 INH; +CALC-451 PO; +ISOS5TAB2 PO
--- NOTE | 2020-12-08 14:36 | NUR ---
Pt resting in bed, provided pt warm blanket. Pt.'s at bedside. Pt's blood pressure normal range now. Pt reports she was dizzy earlier when he bp readings were low but now she feels fine, no dizziness, no chest pain, no SOB.
[2020-12-08 15:33] VITALS: BP 117/59
== END 2020-12-08 15:39 | disposition home or self-care (01) ==
LOC: ED 14:28
DX: I95.9 Hypotension, unspecified (principal); I12.0 Hypertensive chronic kidney disease with stage 5 chronic kidney disease or end stage renal disease; N18.6 End stage renal disease; R00.0 Tachycardia, unspecified; E11.9 Type 2 diabetes mellitus without complications; I25.10 Atherosclerotic heart disease of native coronary artery without angina pectoris; I25.2 Old myocardial infarction; Z98.61 Coronary angioplasty status
CPT/HCPCS: 93005; 99283

== ENCOUNTER 2021-01-21 11:06 | Emergency (ER) | payer MEDICARE ==
[~2021-01-21] VITALS: Ht 157.5 cm; Wt 43.9 kg
[~2021-01-21 11:06] MED LIST changes: -OXYC-302 PO; +OXYC1TAB14 PO
--- NOTE | 2021-01-21 11:15 | NUR ---
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
--- NOTE | 2021-01-21 11:25 | NUR ---
patient arrives today for dehydration. hx pancreas kidney transplant 2004, heart attack 1989 and has had 6 since. she has diabetes type 1. dialysis since nov. 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 last dialysis yesterday
[2021-01-21] MEDS ORDERED: SODIUM CHLORIDE 0.9% 1,000ML IVBOLUS ONE (12:30)
--- NOTE | 2021-01-21 13:06 | NUR ---
IV IN PLACE, GETTING FLUIDS. NOT ABLE TO PROVIDE STOOL FOR TESTS AT THIS TIME. STATES HER DIARREA FREQUENT FROM A MEDICATION SHE TAKES
[2021-01-21 13:25] LABS: BASOPHILS % (AUTO) 1 % (0-1); EOSINOPHILS % (AUTO) 1 % (1-7); LYMPHOCYTES % (AUTO) 12 % (22-44); MEAN CORPUSCULAR HEMOGLOBIN 30.2 pg (27.0-34.8); MEAN CORPUSCULAR HGB CONC 33.6 g/dL (32.4-35.8); MEAN PLATELET VOLUME 9.4 fL (7.4-10.4); MONOCYTES % (AUTO) 6 % (2-9); NEUTROPHILS % (AUTO) 80 % (42-75); PLATELET COUNT 212 x10^3/uL (130-400); RED BLOOD COUNT 3.18 x10^6/uL (3.82-5.3); RED CELL DISTRIBUTION WIDTH 17.1 % (9.6-15.2)
[2021-01-21 13:28] LABS: ALANINE AMINOTRANSFERASE 53 U/L (12-78); ALBUMIN 3.4 g/dL (3.4-5.0); ANION GAP 7 mmol/L (5-15); CHLORIDE 103 mmol/L (98-107); CREATININE 3.53 mg/dL (0.55-1.02)
[2021-01-21 13:29] LABS: MD NO
[2021-01-21 13:30] LABS: ALKALINE PHOSPHATASE 85 U/L (45-117); BILIRUBIN,TOTAL 0.6 mg/dL (0.2-1.0); TOTAL PROTEIN 6.2 g/dL (6.4-8.2)
--- NOTE | 2021-01-21 14:15 | NUR ---
assumed care of pt. report nahed Gray RN pt here for c/o dehydration. pt resting in position of comfort. fluid infusion has been completed. lung sounds CTA. pt reports that she is feeling better after fluids. no c/o at this time pt mother at bedside. updated on POC
--- NOTE | 2021-01-21 15:06 | NUR ---
Report from RAYA Burch. Assumed care.
--- NOTE | 2021-01-21 15:14 | NUR ---
Dr. Jacobsen confirmed that c-diff sample does not need to be collected and pt is good to DC. NS infusion complete, IV removed.
[2021-01-21 15:15] VITALS: BP 177/61
[2021-01-23] MEDS ORDERED: CLOP75TA52 PO (14:19)
[2021-01-23] MEDS ORDERED: TACR1CAP5 PO (14:19)
[2021-01-23] MEDS ORDERED: CARV12.52 PO (14:19)
[2021-01-23] MEDS ORDERED: BUDE10.2 INH (14:19)
== END 2021-01-21 15:23 | disposition home or self-care (01) ==
LOC: ED 14:23
DX: R19.7 Diarrhea, unspecified (principal); R53.1 Weakness; R42 Dizziness and giddiness; R94.31 Abnormal electrocardiogram [ECG] [EKG]; I10 Essential (primary) hypertension; E11.9 Type 2 diabetes mellitus without complications; I25.10 Atherosclerotic heart disease of native coronary artery without angina pectoris; I25.2 Old myocardial infarction
CPT/HCPCS: 36415; 80053; 85025; 93005; 96360; 96361; 99285; J7030

== ENCOUNTER → 2021-01-23 | Outpatient (CLI) | payer MEDICARE ==
[~2021-01-23] MED LIST changes: +BUDE10.2 INH; +CARV12.52 PO
[2021-01-23 15:10] LABS: BASOPHILS % (AUTO) 1 % (0-1); EOSINOPHILS % (AUTO) 4 % (1-7); LYMPHOCYTES % (AUTO) 16 % (22-44); MEAN CORPUSCULAR HEMOGLOBIN 30.1 pg (27.0-34.8); MEAN CORPUSCULAR HGB CONC 32.9 g/dL (32.4-35.8); MEAN PLATELET VOLUME 9.2 fL (7.4-10.4); MONOCYTES % (AUTO) 9 % (2-9); NEUTROPHILS % (AUTO) 71 % (42-75); PLATELET COUNT 188 x10^3/uL (130-400); RED BLOOD COUNT 3.17 x10^6/uL (3.82-5.3); RED CELL DISTRIBUTION WIDTH 17.6 % (9.6-15.2)
[2021-01-23 15:16] LABS: MD NO
[2021-01-23 15:22] LABS: ALBUMIN 3.3 g/dL (3.4-5.0); ANION GAP 8 mmol/L (5-15); CALCIUM 8.9 mg/dL (8.5-10.1); CHLORIDE 106 mmol/L (98-107)
[2021-01-23 15:23] LABS: INTERNATIONAL NORMALIZED RATIO 1.02 (0.93-1.1); PROTHROMBIN TIME 10.9 Seconds (9.6-11.5)
[2021-01-23 15:24] LABS: ALANINE AMINOTRANSFERASE 47 U/L (12-78); ALKALINE PHOSPHATASE 90 U/L (45-117); BILIRUBIN,TOTAL 0.6 mg/dL (0.2-1.0); CREATININE 3.15 mg/dL (0.55-1.02); TOTAL PROTEIN 6.4 g/dL (6.4-8.2)
== END | disposition home or self-care (01) ==
LOC: STAR 13:29
PROVIDERS: ATTEND Surgery
DX: Z01.812 Encounter for preprocedural laboratory examination (principal); Z20.822 Contact with and (suspected) exposure to COVID-19; N18.6 End stage renal disease
CPT/HCPCS: 36415; 80053; 85025; 85610; 85730; U0003

== ENCOUNTER 2021-01-29 12:43 | Day surgery (SDC) | payer MEDICARE ==
[~2021-01-29] VITALS: Ht 157.5 cm; Wt 45.4 kg
[2021-01-29] MEDS ORDERED: CHLORHEXIDINE 15 ML UDC MM ONE (13:00)
[2021-01-29] MEDS ORDERED: SODIUM CHLORIDE 0.9% 1,000 ML IV SCH (13:00)
[2021-01-29 13:02] VITALS: BP 142/64
[2021-01-29] MEDS ORDERED: CHLORHEXIDINE 15 ML UDC ONE (13:04)
[2021-01-29] MEDS ORDERED: FURO20TA3 PO (13:24)
[2021-01-29] MEDS ORDERED: DIFL5DRO RIGHTEYE (13:24)
[2021-01-29] MEDS ORDERED: ENAL20TA9 PO (13:24)
[2021-01-29] MEDS ORDERED: ALLO100T30 PO (13:24)
[2021-01-29] MEDS ORDERED: HEPARIN 1,000 UNITS/ML, 10ML ONE (14:05)
[2021-01-29] MEDS ORDERED: BUPIVACAINE/PF 0.25% ONE (14:05)
[2021-01-29] MEDS ORDERED: PAPAVERINE 30 MG/ML, 2ML ONE (14:05)
[2021-01-29] MEDS ORDERED: PROTAMINE SULFATE 10 MG/ML, 5ML ONE (14:05)
[2021-01-29] MEDS ORDERED: THROMBIN 5,000 UNIT VIAL TP ONE (14:06)
[2021-01-29] MEDS ORDERED: THROMBIN 20,000 UNIT VIAL TP ONE (14:06)
[2021-01-29] MEDS ORDERED: LIDOCAINE/PF 1%, 30ML ONE (14:06)
[2021-01-29] MEDS ORDERED: MIDAZOLAM 1 MG/ML, 2ML ONE (14:12)
[2021-01-29] MEDS ORDERED: PROPOFOL 50 ML ONE (14:12)
[2021-01-29] MEDS ORDERED: FENTANYL PF 250 MCG/5ML ONE (14:13)
[2021-01-29] MEDS ORDERED: ONDANSETRON 2MG/ML, 2ML ONE (14:34)
[2021-01-29] MEDS ORDERED: CEFAZOLIN 1,000 MG ONE (14:34)
[2021-01-29] MEDS ORDERED: morphine SULFATE 10 MG/ML, 1ML IVPush PRN (15:00)
[2021-01-29] MEDS ORDERED: DIPHENHYDRAMINE 50 MG/ML, 1ML IVPush PRN (15:00)
[2021-01-29] MEDS ORDERED: OXYcodone 5 MG/5 ML ORAL.SOL UDC PO PRN (15:00)
[2021-01-29] MEDS ORDERED: FENTANYL PF 100 MCG/2ML IV PRN (15:00)
[2021-01-29] MEDS ORDERED: EPHEDRINE 50 MG/ML, 1ML IVPush PRN (15:00)
[2021-01-29] MEDS ORDERED: EPHEDRINE 50 MG/ML, 1ML IM PRN (15:00)
[2021-01-29] MEDS ORDERED: LABETALOL 5MG/ML, 20ML IV PRN (15:00)
[2021-01-29] MEDS ORDERED: ONDANSETRON 2MG/ML, 2ML IVPush PRN (15:00)
[2021-01-29] MEDS ORDERED: PROMETHAZINE 25 MG/ML, 1ML IVPush PRN (15:00)
[2021-01-29] MEDS ORDERED: DIAZEPAM 5 MG/ML, 2ML IVPush PRN (15:00)
[2021-01-29] MEDS ORDERED: HEPARIN 1,000 UNITS/ML, 10ML IV ONE (15:07)
[2021-01-29] MEDS ORDERED: HYDR-1067 PO (15:59)
[2021-01-29] MEDS ORDERED: ACETAMINOPHEN 650 MG/20.3 ML UDC ONE (16:42)
[2021-01-29] MEDS ORDERED: ACETAMINOPHEN 325 MG TABLET PO PRN (17:00)
== END 2021-01-29 18:35 | disposition home or self-care (01) ==
LOC: OR 12:43
PROVIDERS: ATTEND Surgery
DX: N18.6 End stage renal disease (principal); I12.0 Hypertensive chronic kidney disease with stage 5 chronic kidney disease or end stage renal disease; I25.10 Atherosclerotic heart disease of native coronary artery without angina pectoris; I25.2 Old myocardial infarction; J45.909 Unspecified asthma, uncomplicated; Z79.02 Long term (current) use of antithrombotics/antiplatelets; Z79.82 Long term (current) use of aspirin; Z79.899 Other long term (current) drug therapy; Z88.5 Allergy status to narcotic agent; Z88.8 Allergy status to other drugs, medicaments and biological substances; Z95.5 Presence of coronary angioplasty implant and graft; Z99.2 Dependence on renal dialysis; Z94.83 Pancreas transplant status; Z94.0 Kidney transplant status
CPT/HCPCS: 36830; C1768; J0690; J1644; J2250; J2405; J2704; J2720; J3010; J7030; J2440

== ENCOUNTER → 2021-03-11 | Outpatient (CLI) | payer MEDICARE ==
[~2021-03-11] MED LIST changes: +ALLO100T30 PO; +DIFL5DRO RIGHTEYE; +FURO20TA3 PO; +HYDR-2214 PO; +OMNIPAQUE 350 MG/ML, 100ML BOTTLE ONE
== END | disposition home or self-care (01) ==
LOC: RAD 11:59
PROVIDERS: ATTEND Internal Medicine Cardiovascular Disease
DX: I70.1 Atherosclerosis of renal artery (principal); I73.9 Peripheral vascular disease, unspecified; I35.0 Nonrheumatic aortic (valve) stenosis
CPT/HCPCS: 74174; Q9967

== ENCOUNTER 2021-05-08 12:50 | Outpatient (CLI) | payer MEDICARE ==
[~2021-05-08 12:50] MED LIST changes: -OMNIPAQUE 350 MG/ML, 100ML BOTTLE ONE
== END 2021-05-08 23:59 | disposition home or self-care (01) ==
LOC: CFH 12:50
PROVIDERS: ATTEND Internal Medicine Cardiovascular Disease
DX: I08.0 Rheumatic disorders of both mitral and aortic valves (principal); I31.3 Pericardial effusion (noninflammatory); I11.9 Hypertensive heart disease without heart failure; E78.5 Hyperlipidemia, unspecified; I25.2 Old myocardial infarction; I73.9 Peripheral vascular disease, unspecified; Z99.2 Dependence on renal dialysis
CPT/HCPCS: 93306; 93356

== ENCOUNTER → 2021-06-19 | Outpatient (CLI) | payer MEDICARE ==
[~2021-06-19] MED LIST changes: +AMLO5TAB4 PO; +ATOR40TA78 PO; +CALC0.25 PO; +DOXA2TAB9 PO; +ISOS30TA21 PO; +L.AC1CAP6 PO; +SODI650T PO
[2021-06-19 15:19] LABS: BASOPHILS % (AUTO) 0 % (0-1); EOSINOPHILS % (AUTO) 1 % (1-7); LYMPHOCYTES % (AUTO) 12 % (22-44); MEAN CORPUSCULAR HEMOGLOBIN 28.7 pg (27.0-34.8); MEAN CORPUSCULAR HGB CONC 31.3 g/dL (32.4-35.8); MEAN PLATELET VOLUME 10.3 fL (7.4-10.4); MONOCYTES % (AUTO) 4 % (2-9); NEUTROPHILS % (AUTO) 82 % (42-75); PLATELET COUNT 116 x10^3/uL (130-400); RED BLOOD COUNT 3.73 x10^6/uL (3.82-5.3); RED CELL DISTRIBUTION WIDTH 16.7 % (9.6-15.2)
[2021-06-19 15:31] LABS: INTERNATIONAL NORMALIZED RATIO 1.01 (0.93-1.1); PROTHROMBIN TIME 10.8 Seconds (9.6-11.5)
[2021-06-19 15:32] LABS: ALBUMIN 3.1 g/dL (3.4-5.0); ANION GAP 3 mmol/L (5-15); CALCIUM 9.2 mg/dL (8.5-10.1); CHLORIDE 103 mmol/L (98-107)
[2021-06-19 15:36] LABS: ALANINE AMINOTRANSFERASE 27 U/L (12-78); ALKALINE PHOSPHATASE 70 U/L (45-117); BILIRUBIN,TOTAL 0.7 mg/dL (0.2-1.0); CREATININE 3.83 mg/dL (0.55-1.02)
== END | disposition home or self-care (01) ==
LOC: STAR 12:30
PROVIDERS: ATTEND Surgery
DX: Z01.818 Encounter for other preprocedural examination (principal); N18.6 End stage renal disease; I25.2 Old myocardial infarction
CPT/HCPCS: 36415; 80053; 85025; 85610; 85730; 93005

== ENCOUNTER 2021-06-24 08:04 | Day surgery (SDC) | payer MEDICARE ==
[~2021-06-24] VITALS: Ht 154.9 cm; Wt 47.6 kg
[2021-06-24 08:39] VITALS: BP 100/55
[2021-06-24] MEDS ORDERED: LACTATED RINGERS 1,000 ML IV SCH (09:00)
[2021-06-24] MEDS ORDERED: CHLORHEXIDINE 15 ML UDC PO ONE (09:00)
[2021-06-24] MEDS ORDERED: SODIUM CHLORIDE 0.9% 1,000 ML IV SCH (09:00)
[2021-06-24] MEDS ORDERED: BUPIVACAINE/PF 0.5% ONE (09:18)
[2021-06-24] MEDS ORDERED: HEPARIN 5,000 UNITS/ML, 1ML ONE (09:22)
[2021-06-24] MEDS ORDERED: FENTANYL PF 100 MCG/2ML IV PRN (09:30)
[2021-06-24] MEDS ORDERED: DIAZEPAM 5 MG/ML, 2ML IVPush PRN (09:30)
[2021-06-24] MEDS ORDERED: LABETALOL 5MG/ML, 20ML IV PRN (09:30)
[2021-06-24] MEDS ORDERED: EPHEDRINE 50 MG/ML, 1ML IVPush PRN (09:30)
[2021-06-24] MEDS ORDERED: METOCLOPRAMIDE 5 MG/ML, 2ML IVPush PRN (09:30)
[2021-06-24] MEDS ORDERED: hydrALAzine 20 MG/ML, 1ML IV PRN (09:30)
[2021-06-24] MEDS ORDERED: HALOPERIDOL 5 MG/ML IV PRN (09:30)
[2021-06-24] MEDS ORDERED: LORazepam 2 MG/ML, 1ML IVPush PRN (09:30)
[2021-06-24] MEDS ORDERED: DIPHENHYDRAMINE 50 MG/ML, 1ML IVPush PRN (09:30)
[2021-06-24] MEDS ORDERED: EPHEDRINE 50 MG/ML, 1ML IM PRN (09:30)
[2021-06-24] MEDS ORDERED: METHOCARBAMOL 1,000 MG in DEXTROSE 5% 100 ML IV PRN (09:30)
[2021-06-24] MEDS ORDERED: ONDANSETRON 2MG/ML, 2ML IVPush PRN (09:30)
[2021-06-24] MEDS ORDERED: MIDAZOLAM 1 MG/ML, 2ML IV PRN (09:30)
[2021-06-24] MEDS ORDERED: ALBUTEROL/IPRATROPIUM 2.5MG/0.5MG, 3 ML NPPB PRN (09:30)
[2021-06-24] MEDS ORDERED: FENTANYL PF 100 MCG/2ML ONE (09:49)
[2021-06-24] MEDS ORDERED: PROPOFOL 10 MG/ML, 20ML ONE (09:49)
[2021-06-24] MEDS ORDERED: ROCURONIUM 10MG/ML,5ML ONE (09:49)
[2021-06-24] MEDS ORDERED: MIDAZOLAM 1 MG/ML, 2ML ONE (09:49)
[2021-06-24] MEDS ORDERED: GLYCOPYRROLATE 0.2MG/1ML, 5ML ONE (09:49)
[2021-06-24] MEDS ORDERED: LIDOCAINE-MPF 2% ,5ML ONE (09:49)
[2021-06-24] MEDS ORDERED: DEXAMETHASONE 4 MG/ML, 1ML ONE (09:49)
[2021-06-24] MEDS ORDERED: CEFAZOLIN 1,000 MG ONE (09:55)
[2021-06-24] MEDS ORDERED: hydrALAzine 20 MG/ML, 1ML ONE (12:24)
[2021-06-24] MEDS ORDERED: OXYcodone 5 MG/5 ML ORAL.SOL UDC ONE (13:22)
[2021-06-24] MEDS ORDERED: OXYcodone 5 MG/5 ML ORAL.SOL UDC PO ONE (13:30)
== END 2021-06-24 14:00 | disposition home or self-care (01) ==
LOC: OUT 08:04
PROVIDERS: ATTEND Surgery
DX: E10.22 Type 1 diabetes mellitus with diabetic chronic kidney disease (principal); I12.0 Hypertensive chronic kidney disease with stage 5 chronic kidney disease or end stage renal disease; N18.6 End stage renal disease; I25.10 Atherosclerotic heart disease of native coronary artery without angina pectoris; I25.2 Old myocardial infarction; J45.40 Moderate persistent asthma, uncomplicated; J32.9 Chronic sinusitis, unspecified; Z79.82 Long term (current) use of aspirin; Z79.02 Long term (current) use of antithrombotics/antiplatelets; Z79.899 Other long term (current) drug therapy; Z88.8 Allergy status to other drugs, medicaments and biological substances; Z88.5 Allergy status to narcotic agent; Z90.49 Acquired absence of other specified parts of digestive tract; Z82.49 Family history of ischemic heart disease and other diseases of the circulatory system; Z80.42 Family history of malignant neoplasm of prostate
CPT/HCPCS: 49324; C1750; J0360; J1100; J1644; J2250; J2704; J3010; J7030; J0690